=== PATIENT | female | born 1960 | race Caucasian/White ===

== ENCOUNTER 2023-03-29 10:22 | Emergency (ER) | payer OTHER, BC | END 2023-03-29 11:33 | disposition home or self-care (01) | LOC: FB.ED 10:22 | DX: S01.111A Laceration without foreign body of right eyelid and periocular area, initial encounter (principal); S01.112A Laceration without foreign body of left eyelid and periocular area, initial encounter; Z86.73 Personal history of transient ischemic attack (TIA), and cerebral infarction without residual deficits; W18.30XA Fall on same level, unspecified, initial encounter; Y92.240 Courthouse as the place of occurrence of the external cause | CPT/HCPCS: 12013; 99283 ==